=== PATIENT | male | born 1965 | race African-American/Black ===

== ENCOUNTER 2021-06-20 05:38 | Inpatient (IN) ==
[2021-06-15 11:54] LABS: Basophils % 0.5 % (0.0-0.8); Eosinophils # 0.1 10*3/uL (0.0-0.87); Eosinophils % 1.4 % (0.00-10.9); Hematocrit 43.4 VOL% (42.0-52.0); Hemoglobin 13.7 GM/DL (14.0-18.0); Immature Granulocytes % 0.5 %; Immature Granulocytes Absolute 0.03 #; Lymphocytes # 2.2 10*3/uL (1.4-4.0); Lymphocytes % 37.3 % (21.2-54.2); Mean Corpuscular HGB Conc 31.6 GM/DL (32-36); Mean Corpuscular Volume 90.8 FL (87-102); Mean Platelet Volume 10.1 FL (9.6-12.0); Monocytes % 13.9 % (1.7-12.7); Neutrophils % 46.4 % (38.7-73.9); Platelet Count 222 T/CUMM (130-400); Red Blood Count 4.78 MC/CUMM (3.8-5.5); Red Cell Distribution Width 14.8 % (9.3-17.3); White Blood Count 5.9 T/CUMM (4-12)
[2021-06-15 12:04] LABS: Alanine Aminotransferase 40 U/L (16-61); Alkaline Phosphatase 104 U/L (45-117); Aspartate Amino Transferase 30 U/L (0-37); Bilirubin,Total < 0.39 MG/DL (0.20-1.00); Blood Urea Nitrogen 24 MG/DL (7-18); Calcium 8.9 MG/DL (8.5-10.1); Carbon Dioxide 26 MMOL/L (21-32); Estimated Glom Filtration Rate 124 ML/MIN; Glucose 115 MG/DL (74-106); Osmolality,Calculated 283.4 MOS/KG (273-304); Potassium 4.7 MMOL/L (3.5-5.1); Sodium 140 MMOL/L (136-145); Total Protein 7.3 G/DL (6.4-8.2)
[2021-06-20] MEDS ORDERED: cefTRIAXone 1,000 MG VIAL ONE (06:27)
[2021-06-20] MEDS ORDERED: FAMOTIDINE 20 MG TABLET ONE (06:27)
[2021-06-20] MEDS ORDERED: ACETAMINOPHEN 500 MG TABLET ONE (06:27)
[2021-06-20] MEDS ORDERED: ALVIMOPAN 12 MG CAPSULE ONE (06:27)
[2021-06-20] MEDS ORDERED: GABAPENTIN 400 MG CAPSULE ONE (06:27)
[2021-06-20] MEDS ORDERED: BUPIVACAINE MPF 0.25% 30 ML VIAL ONE (06:28)
[2021-06-20] MEDS ORDERED: FAMOTIDINE 20 MG TABLET PO ONE (06:30)
[2021-06-20] MEDS ORDERED: ROCURONIUM 50 MG/5 ML VIAL IV ONE ×2 (06:30→08:41)
[2021-06-20] MEDS ORDERED: LIDOCAINE 2% 5 ML VIAL ONE (06:30)
[2021-06-20] MEDS ORDERED: SEVOFLURANE 1 UNIT/15 MINUTE INH ONE ×2 (06:30→11:14)
[2021-06-20] MEDS ORDERED: propofoL 200 MG/20 ML VIAL IV ONE (06:30)
[2021-06-20] MEDS ORDERED: DEXAMETHASONE 4 MG/1 ML VIAL ONE (06:30)
[2021-06-20] MEDS ORDERED: MIDAZOLAM 2 MG/2 ML VIAL ONE (06:31)
[2021-06-20] MEDS ORDERED: SUFentanil 50 MCG/ML AMP ONE (06:31)
[2021-06-20] MEDS ORDERED: LACTATED RINGERS 1,000 ML IV SCH ×2 (06:35→07:30)
[2021-06-20] MEDS ORDERED: ACETAMINOPHEN 500 MG TABLET PO ONE (06:35)
[2021-06-20] MEDS ORDERED: GABAPENTIN 400 MG CAPSULE PO ONE (06:35)
[2021-06-20] MEDS ORDERED: ALVIMOPAN 12 MG CAPSULE PO ONE (06:35)
[2021-06-20] MEDS ORDERED: ROPIVACAINE 0.5% 30 ML VIAL ONE (06:38)
[2021-06-20] MEDS ORDERED: cefTRIAXone 1,000 MG in SODIUM CHLORIDE 0.9% 100 ML IV ONE (07:14)
[2021-06-20] MEDS ORDERED: PHENYLEPHRINE 10 MG/1 ML VIAL IV ONE (07:52)
[2021-06-20] MEDS ORDERED: PHENYLEPHRINE 1 MG/10 ML SYRINGE IV ONE (07:52)
[2021-06-20] MEDS ORDERED: LACTATED RINGERS 1,000 ML IV ONE (08:17)
[2021-06-20] MEDS ORDERED: SODIUM CHLORIDE 0.9% 250 ML IV ONE (08:17)
[2021-06-20 08:26] LABS: Glucose,Urine (UA) Negative (Negative); Mucus,Urine Few /LPF (Occasional); Protein,Urine Negative; RBC,Urine 42 /HPF (0-4); Urine Appearance Clear (Clear); Urine Color Yellow (Yellow); Urine Specific Gravity 1.025 (1.001-1.035)
[2021-06-20 08:27] LABS: Bilirubin,Urine Negative (Negative); Blood, Urine Moderate mg/dL (Negative); Ketones,Urine 2+ mg/dL (Negative); Nitrite,Urine Negative (Negative)
[2021-06-20] MEDS ORDERED: SUGAMMADEX 200 MG/2 ML VIAL IV ONE (10:36)
[2021-06-20] MEDS ORDERED: ONDANSETRON 4 MG/2 ML VIAL IV PRN ×2 (11:14→11:50)
[2021-06-20] MEDS ORDERED: SIMETHICONE CHEW 125 MG TABLET PO PRN (11:14)
[2021-06-20] MEDS ORDERED: HYDROmorphone 2 MG/1 ML VIAL IV PRN (11:14)
[2021-06-20] MEDS ORDERED: oxyCODONE/ACETAMINOPHEN 5-325 MG TABLET PO PRN (11:14)
[2021-06-20] MEDS ORDERED: diphenhydrAMINE 50 MG/1 ML VIAL IV PRN (11:14)
[2021-06-20] MEDS ORDERED: LACTULOSE 20 GM/30 ML UDCUP PO PRN (11:14)
[2021-06-20] MEDS ORDERED: PROMETHAZINE 25 MG/1 ML VIAL IM PRN (11:14)
[2021-06-20 11:47] LABS: Basophils % 0.2 % (0.0-0.8); Hematocrit 40.7 VOL% (42.0-52.0); Hemoglobin 13.2 GM/DL (14.0-18.0); Immature Granulocytes % 0.5 %; Immature Granulocytes Absolute 0.05 #; Lymphocytes # 1.4 10*3/uL (1.4-4.0); Lymphocytes % 13.7 % (21.2-54.2); Mean Corpuscular HGB Conc 32.4 GM/DL (32-36); Mean Corpuscular Volume 89.5 FL (87-102); Mean Platelet Volume 9.1 FL (9.6-12.0); Monocytes % 2.9 % (1.7-12.7); Neutrophils % 82.7 % (38.7-73.9); Platelet Count 196 T/CUMM (130-400); Red Blood Count 4.55 MC/CUMM (3.8-5.5); Red Cell Distribution Width 14.6 % (9.3-17.3); White Blood Count 10.2 T/CUMM (4-12)
[2021-06-20] MEDS ORDERED: MEPERIDINE 25 MG/1 ML VIAL ONE (11:49)
[2021-06-20] MEDS ORDERED: MEPERIDINE 25 MG/1 ML VIAL IV PRN (11:50)
[2021-06-20 11:55] LABS: Calcium 8.4 MG/DL (8.5-10.1); Osmolality,Calculated 275.8 MOS/KG (273-304); Potassium 4.4 MMOL/L (3.5-5.1)
[2021-06-20 13:17] LABS: Lymphocytes 14 % (20-55); Segmented Neutrophils 86 % (50-85); Total Cells Counted 100
[2021-06-20 13:19] LABS: Platelet Estimate Normal; Target Cells Slight
[2021-06-20] MEDS: SODIUM CHLORIDE 0.9% 1,000 ML IV SCH (13:46)
[2021-06-20] MEDS: ACETAMINOPHEN 325 MG TABLET PO SCH ×2 (14:06→16:31)
[2021-06-20 15:08] LABS: Basophils % 0.1 % (0.0-0.8); Hematocrit 37.5 VOL% (42.0-52.0); Immature Granulocytes % 0.7 %; Immature Granulocytes Absolute 0.09 #; Lymphocytes # 0.8 10*3/uL (1.4-4.0); Lymphocytes % 6.4 % (21.2-54.2); Mean Platelet Volume 9.4 FL (9.6-12.0); Monocytes % 8.5 % (1.7-12.7); Neutrophils % 84.3 % (38.7-73.9); Platelet Count 192 T/CUMM (130-400); Red Blood Count 4.12 MC/CUMM (3.8-5.5); Red Cell Distribution Width 14.6 % (9.3-17.3)
[2021-06-20 15:29] LABS: Bilirubin,Total 0.4 MG/DL (0.20-1.00); Calcium 8.1 MG/DL (8.5-10.1); Osmolality,Calculated 276.7 MOS/KG (273-304); Potassium 4.1 MMOL/L (3.5-5.1); Total Protein 6.3 G/DL (6.4-8.2)
[2021-06-20 15:41] LABS: Band Neutrophils 2 % (0-10); Hypochromia 1+; Lymphocytes 6 % (20-55); Segmented Neutrophils 91 % (50-85); Total Cells Counted 100
[2021-06-20 15:42] LABS: Burr Cells 1+; Platelet Estimate Normal; Schistocytes Few
[2021-06-20] MEDS: ALVIMOPAN 12 MG CAPSULE PO SCH (21:29)
[2021-06-20] MEDS: DOCUSATE SODIUM 100 MG CAPSULE PO SCH (21:29)
[2021-06-21] MEDS: SODIUM CHLORIDE 0.9% 1,000 ML IV SCH (00:15)
[2021-06-21] MEDS: ACETAMINOPHEN 325 MG TABLET PO SCH ×3 (00:15→11:33)
[2021-06-21 05:50] LABS: Basophils % 0.2 % (0.0-0.8); Eosinophils % 0.1 % (0.00-10.9); Hematocrit 34.5 VOL% (42.0-52.0); Immature Granulocytes % 0.6 %; Immature Granulocytes Absolute 0.05 #; Lymphocytes # 1.9 10*3/uL (1.4-4.0); Lymphocytes % 22.4 % (21.2-54.2); Mean Corpuscular HGB Conc 31.9 GM/DL (32-36); Mean Corpuscular Volume 91.5 FL (87-102); Mean Platelet Volume 10.2 FL (9.6-12.0); Neutrophils % 56.7 % (38.7-73.9); Platelet Count 180 T/CUMM (130-400); Red Blood Count 3.77 MC/CUMM (3.8-5.5); Red Cell Distribution Width 14.6 % (9.3-17.3); White Blood Count 8.6 T/CUMM (4-12)
[2021-06-21 05:53] LABS: Calcium 8.1 MG/DL (8.5-10.1); Osmolality,Calculated 275.5 MOS/KG (273-304); Potassium 4.2 MMOL/L (3.5-5.1)
[2021-06-21 06:17] LABS: Hypochromia Slight; Lymphocytes 26 % (20-55); Microcytosis Slight; Platelet Estimate Adequate; Segmented Neutrophils 62 % (50-85); Total Cells Counted 100
[2021-06-21] MEDS: ALVIMOPAN 12 MG CAPSULE PO SCH (08:12)
[2021-06-21] MEDS: DOCUSATE SODIUM 100 MG CAPSULE PO SCH (08:12)
[2021-06-21] MEDS ORDERED: cefTRIAXone 1,000 MG in SODIUM CHLORIDE 0.9% 100 ML IV SCH (09:00)
[2021-06-21 11:57] VITALS: BP 116/78
== END 2021-06-21 16:31 | disposition home or self-care (01) | DRG 708 ==
LOC: N.OR 05:38 → N.SDSINP 05:39 → EDSTATUS 07:30 → N.3E 10:20
PROVIDERS: ADMIT Surgery; ATTEND Surgery